=== PATIENT | male | born 1985 | race American Indian/Alaskan Native ===

== ENCOUNTER 2020-06-17 17:01 | Emergency (ER) | payer SELFPAY ==
[2020-06-17 17:30] VITALS: BP 178/120
--- NOTE | 2020-06-17 19:02 | Ultrasound Report ---
ULTRASOUND SCROTUM INDICATION: pain, swelling to right testicle and rectum. COMPARISON None available. FINDINGS -- RIGHT TESTIS: Size: 5.1 x 2.6 x 3.0 cm. Echotexture: Normal. Color Doppler Flow: Normal Lesions: None. EPIDIDYMIS: Size: Normal. Echotexture: Normal. Color Doppler Flow: Increased Lesions: None. Hydrocele: None. Varicocele: None. Additional Findings: None. FINDINGS -- LEFT TESTIS: Size: 5.5 x 2.5 x 3.9 cm. Echotexture: Normal. Color Doppler Flow: Normal. Lesions: None. EPIDIDYMIS: Size: Normal. Echotexture: Normal. Color Doppler Flow: Normal. Lesions: None. Hydrocele: None. Varicocele: None. Additional Findings: None. IMPRESSION: 1. Right-sided epididymitis. Signer Name: Heriberto Bettencourt MD Signed: 06/17/2020 6:57 PM Workstation Name: [id number][id number]
== END 2020-06-17 21:37 | disposition left against medical advice (07) ==
LOC: ED 17:01
DX: N50.811 Right testicular pain (principal); Z53.21 Procedure and treatment not carried out due to patient leaving prior to being seen by health care provider
CPT/HCPCS: 93975